=== PATIENT | female | born 1965 | race Caucasian/White ===

== ENCOUNTER 2019-07-09 10:18 | Emergency (ER) | payer OTHER ==
[2019-07-09] MEDS ORDERED: Ondansetron 4 MG Tab.DIS PO ONE (11:36)
--- NOTE | 2019-07-09 12:20 | EDM.PDOC ---
ED HPI GENERAL MEDICAL PROBLEM - General Chief Complaint: General Stated Complaint: NAUSEA,FELL ON SUNDAY,,HIT HEAD Time Seen by Provider: 07/09/19 11:40 Source of Information: Reports: Patient History Limitations: Reports: No Limitations - History of Present Illness INITIAL COMMENTS - FREE TEXT/NARRATIVE: 54 yo presents with concerns of ESPINO, nausea, confusion, neck pain Fell almost 3 days ago from standing. Bystander reports headstrike but patient does not remember this. Does not report LOC. Doing well last 48hrs. Then today with nausea and emesis x2, bitemporal headache, pain at base of neck that came on this morning which working at [email or web address]. Friends report she "stares" off and has difficulty focusing. Patient concern of pain midline c spine at base of skull, no radiation, no real change with movement. No extremity paresthesia or weakness. Occasional block spots in vision. No blood thinner. Posterior Neck Pain Score (Numeric/FACES): 7 - Related Data Allergies Allergy/AdvReac Type Severity Reaction Status Date / Time Sulfa (Sulfonamide Allergy Anaphylactic Verified 07/09/19 10:38 Antibiotics) Shock Home Meds: Home Meds Amitriptyline [Elavil] 10 mg PO BEDTIME 07/09/19 [History] Cyanocobalamin (Vitamin B12) [Vitamin B12] 1,000 mcg SUBCUT ONETIME 07/09/19 [ History] Pantoprazole Sodium [Protonix] 40 mg PO DAILY 07/09/19 [History] traZODone 200 mg PO BEDTIME 07/09/19 [History] Past Medical History Cardiovascular History: Reports: Other (See Below) Other Cardiovascular History: aortic dysplasia Genitourinary History: Reports: Renal Calculus PUBLIC [employer]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: Endometrial Ablation Hematologic History: Reports: B12 Deficiency Oncologic (Cancer) History: Reports: Cervix - Infectious Disease History Infectious Disease History: Reports: Chicken Pox - Past Surgical History GI Surgical History: Reports: Appendectomy, Cholecystectomy Musculoskeletal Surgical History: Reports: Other (See Below) Other Musculoskeletal Surgeries/Procedures:: vein stripping of right leg recently Social & Family History - Tobacco Use Smoking Status *Q: Never Smoker - Caffeine Use Caffeine Use: Reports: Coffee - Recreational Drug Use Recreational Drug Use: Yes Recreational Drug Type: Reports: Marijuana/Hashish Recreational Drug Use Frequency: Rarely ED ROS GENERAL - Review of Systems Review Of Systems: See Below Constitutional: Reports: No Symptoms HEENT: Reports: Vision Change Respiratory: Reports: No Symptoms Cardiovascular: Reports: No Symptoms Endocrine: Reports: No Symptoms GI/Abdominal: Reports: No Symptoms : Reports: No Symptoms Musculoskeletal: Reports: No Symptoms Skin: Reports: No Symptoms Neurological: Reports: Confusion, Headache Psychiatric: Reports: No Symptoms Hematologic/Lymphatic: Reports: No Symptoms Immunologic: Reports: No Symptoms ED EXAM, GENERAL - Physical Exam Exam: See Below Exam Limited By: No Limitations General Appearance: Alert, No Apparent Distress Ears: Normal External Exam Nose: Normal Inspection Throat/Mouth: Normal Inspection Head: Atraumatic, Normocephalic Neck: Normal Inspection, Tender Midline (mild upper cspine tenderness) Respiratory/Chest: No Respiratory Distress, Lungs Clear Cardiovascular: Regular Rate, Rhythm GI/Abdominal: Soft, Non-Tender Back Exam: Normal Inspection Extremities: Normal Inspection Neurological: Alert, Oriented, CN II-XII Intact, Normal Gait, No Motor/Sensory Deficits, Other (finger nose testing normal) Skin Exam: Warm, Dry Course - Vital Signs Last Recorded V/S: Last Vital Signs Temp 35.3 C 07/09/19 10:41 Pulse 80 07/09/19 10:41 Resp 16 07/09/19 10:41 BP 149/75 H 07/09/19 10:41 Pulse Ox 98 07/09/19 10:41 - Orders/Labs/Meds Meds: Medications Discontinued Medications Generic Name Dose Route Start Last Admin Trade Name Genny PRN Reason Stop Dose Admin Ondansetron HCl 4 mg 07/09/19 11:36 07/09/19 11:43 Zofran Odt PO 07/09/19 11:37 4 mg ONETIME ONE Administration - Re-Assessments/Exams Free Text/Narrative Re-Assessment/Exam: 54 yo presents with concerns of ESPINO, N/V, neck pain, intermittent confusion Did have fall 3 nearly 3 days ago Distant hx of headaches Seem most consistent with post-concussive symptoms or primary ESPINO But given trauma, neck tenderness will check CT head/c-spine 07/09/19 12:18 Free Text/Narrative Re-Assessment/Exam: CT negative Feeling improved Discussed symptomatic cares 07/09/19 13:26 Departure - Departure Time of Disposition: 13:27 Disposition: Home, Self-Care 01 Clinical Impression: Post concussion syndrome - Discharge Information Instructions: Post-Concussion Syndrome Referrals: PCP,None [Primary Care Provider] - Forms: ED Department Discharge
--- NOTE | 2019-07-09 12:38 | CRLCT ---
INDICATION: Fall with neck pain TECHNIQUE: CT cervical spine without contrast. COMPARISON: None FINDINGS: Vertebral alignment: Alignment is normal. Vertebrae: There are no fractures or suspicious bony lesions. Discs and facet joints: There are moderate multilevel degenerative disc and facet changes. Extraspinal findings: Paraspinous soft tissues are unremarkable. IMPRESSION: 1. No sign of acute injury. 2. Multilevel degenerative spondylosis. Please note that all CT scans at this facility use dose modulation, iterative reconstruction, and/or weight-based dosing when appropriate to reduce radiation dose to as low as reasonably achievable. Dictated by Indira Solorzano MD @ Jul 09 2019 12:34PM Signed by Dr. Indira Solorzano @ Jul 09 2019 12:37PM
--- NOTE | 2019-07-09 12:40 | CRLCT ---
INDICATION: Fall, headache, confusion TECHNIQUE: Head CT without contrast. COMPARISON: None FINDINGS: CSF spaces: Within normal limits for age. Brain parenchyma: Normal quevdeo-white junction. No sign of mass, hemorrhage, or midline shift. Skull base and calvarium: The visualized paranasal sinuses and mastoid air cells demonstrate no acute or significant findings. The visualized orbits are grossly unremarkable. No skull fractures. IMPRESSION: No acute abnormality. Please note that all CT scans at this facility use dose modulation, iterative reconstruction, and/or weight-based dosing when appropriate to reduce radiation dose to as low as reasonably achievable. Dictated by Indira Solorzano MD @ Jul 09 2019 12:37PM Signed by Dr. Indira Solorzano @ Jul 09 2019 12:39PM
== END 2019-07-09 13:32 | disposition home or self-care (01) ==
LOC: JP.ED 10:18
DX: F07.81 Postconcussional syndrome (principal); Z79.899 Other long term (current) drug therapy; Z88.2 Allergy status to sulfonamides
CPT/HCPCS: 70450; 72125; 99285; A9270